=== PATIENT | female | born 1995 | race Caucasian/White ===

== ENCOUNTER 2018-04-09 10:03 | Emergency (ER) | payer OTHER ==
[~2018-04-09] VITALS: Ht 154.9 cm; Wt 48.1 kg
[2018-04-09] MEDS ORDERED: PRIMACARE SOFT1 EACH PO (10:16)
[2018-04-12] MEDS ORDERED: DUI500 PO (15:18)
== END 2018-04-09 15:00 | disposition home or self-care (01) ==
LOC: ER 10:03
DX: O23.41 Unspecified infection of urinary tract in pregnancy, first trimester (principal); O26.891 Other specified pregnancy related conditions, first trimester; R10.2 Pelvic and perineal pain; Z34.01 Encounter for supervision of normal first pregnancy, first trimester

== ENCOUNTER → 2018-04-12 | Emergency (ER) | payer OTHER ==
[~2018-04-12] VITALS: Ht 154.9 cm; Wt 48.5 kg
[~2018-04-12] MED LIST: DUI500 PO; PRIMACARE SOFT1 EACH PO
== END | disposition home or self-care (01) ==
LOC: ER 11:26
DX: O26.891 Other specified pregnancy related conditions, first trimester (principal); R10.2 Pelvic and perineal pain; Z34.01 Encounter for supervision of normal first pregnancy, first trimester

== ENCOUNTER 2018-04-29 22:14 | Emergency (ER) | payer OTHER ==
[~2018-04-29] VITALS: Ht 154.9 cm; Wt 48.5 kg
== END 2018-04-30 04:13 | disposition home or self-care (01) ==
LOC: ER 22:14
DX: O20.8 Other hemorrhage in early pregnancy (principal); Z34.02 Encounter for supervision of normal first pregnancy, second trimester

== ENCOUNTER 2018-05-31 13:31 | Outpatient (CLI) | payer OTHER | END 2018-05-31 19:50 | disposition home or self-care (01) | LOC: OBS/DEL 13:31 | DX: O76 Abnormality in fetal heart rate and rhythm complicating labor and delivery (principal); Z34.01 Encounter for supervision of normal first pregnancy, first trimester ==

== ENCOUNTER 2018-07-01 19:28 | Inpatient (IN) | payer OTHER ==
[~2018-07-01] VITALS: Ht 157.5 cm; Wt 117.0 kg
== END 2018-07-08 15:44 | DRG 833 ==
LOC: OBS/DEL 19:28 → OB/GYN 07-02 10:32 → LDR 07-02 10:32 → OB/GYN 07-03 09:03
PROVIDERS: ADMIT Obstetrics & Gynecology
PROC: BY4CZZZ Ultrasonography of Second Trimester, Single Fetus (ICD-10-PCS; principal; 2018-07-02)
PROC: 4A1HXCZ Monitoring of Products of Conception, Cardiac Rate, External Approach (ICD-10-PCS; 2018-07-02)
DX: O47.02 False labor before 37 completed weeks of gestation, second trimester (principal); Z34.02 Encounter for supervision of normal first pregnancy, second trimester

== ENCOUNTER 2018-09-07 22:28 | Outpatient (CLI) | payer OTHER | END 2018-09-08 19:37 | disposition home or self-care (01) | LOC: OBS/DEL 22:28 | DX: O23.43 Unspecified infection of urinary tract in pregnancy, third trimester (principal); O60.03 Preterm labor without delivery, third trimester; Z34.03 Encounter for supervision of normal first pregnancy, third trimester ==

== ENCOUNTER 2018-10-02 00:37 | Outpatient (CLI) | payer OTHER | END 2018-10-02 20:59 | disposition home or self-care (01) | LOC: OBS/DEL 00:37 → LDR 10-03 22:38 | DX: O47.1 False labor at or after 37 completed weeks of gestation (principal); Z34.03 Encounter for supervision of normal first pregnancy, third trimester ==

== ENCOUNTER 2018-10-03 22:53 | Inpatient (IN) | payer OTHER ==
[~2018-10-03] VITALS: Ht 154.9 cm; Wt 65.3 kg
== END 2018-10-06 10:48 | disposition home or self-care (01) | DRG 807 ==
LOC: OB/GYN 22:53 → LDR 22:53 → OB/GYN 10-04 10:07
PROVIDERS: ADMIT Obstetrics & Gynecology
PROC: 4A1HXCZ Monitoring of Products of Conception, Cardiac Rate, External Approach (ICD-10-PCS; 2018-10-03)
PROC: 10E0XZZ Delivery of Products of Conception, External Approach (ICD-10-PCS; principal; 2018-10-04)
PROC: 0KQM0ZZ Repair Perineum Muscle, Open Approach (ICD-10-PCS; 2018-10-04)
PROC: 3E0P7VZ Introduction of Hormone into Female Reproductive, Via Natural or Artificial Opening (ICD-10-PCS; 2018-10-04)
PROC: 3E033VJ Introduction of Other Hormone into Peripheral Vein, Percutaneous Approach (ICD-10-PCS; 2018-10-04)
DX: O70.1 Second degree perineal laceration during delivery (principal); Z37.0 Single live birth; Z3A.38 38 weeks gestation of pregnancy; Z22.330 Carrier of Group B streptococcus